=== PATIENT | female | born 1960 | race Caucasian/White ===

== ENCOUNTER → 2023-08-13 | Day surgery (SDC) | payer MEDICARE, MEDICAID ==
[~2023-08-13] VITALS: Ht 149.9 cm; Wt 61.0 kg
[~2023-08-13] MED LIST: ATOR20TA65 PO; BACITRACIN 14GM TUBE TOP ONE; BUPIVACAINE HCL/PF 0.5% (5MG/ML) 10ML ONE; CLINDAMYCIN 900MG PREMIX 50 ML IV ONE; FENTANYL CITRATE/PF 50MCG/ML 2ML VIAL ONE; GABA-529 PO; HEPARIN SODIUM 1,000 UNIT/1ML VIAL IV ONE; HYDROMORPHONE HCL/PF 2MG/ML CPJ IV PRN; INSNOV SUBCUT; INSU100I24 SQ; LABETALOL 5MG/ML SYR 20 MG/4 ML SYRINGE IV PRN; LIDOCAINE HCL 1% 10 MG/ML 10ML VIAL ONE; MEPERIDINE HCL/PF 25MG/ML CPJ IV PRN; MIDAZOLAM HCL 2 MG/2 ML VIAL ONE; MIDO5TAB4 PO; ONDANSETRON HCL 4MG/2ML INJ IV PRN; POLYMYXIN B SULFATE 500000 UNITS/VIAL ONE; PROPOFOL 200MG/20ML VIAL IV ONE; ROPIVACAINE HCL 1% 20 ML VIAL EPI ONE; SEVE800T8 PO; SODIUM CHLORIDE 0.9% 500 ML IV NR; THROMBIN (BOVINE) 5000 UNITS/VIAL TOP ONE
[2023-08-13 06:12] LABS: BASOPHILS % 0.8 % (0.0-2.0); EOSINOPHILS % 3.2 % (0.0-5.0); HEMATOCRIT. 38.4 % (36.0-48.0); HEMOGLOBIN. 12.3 g/dL (12.0-16.0); LYMPHOCYTES % 26.5 % (20.0-50.0); MEAN CORPUSCULAR HEMOGLOBIN 29.4 pg (28.0-32.0); MEAN CORPUSCULAR HGB CONC 32.2 g/dL (31.0-37.0); MEAN CORPUSCULAR VOLUME 91.5 fL (81.0-99.0); MEAN PLATELET VOLUME 7.7 fl (7.4-10.4); MONOCYTES % 7.7 % (2.0-8.0); NEUTROPHILS % 61.8 % (40.0-76.0); PLATELET 208 x1000/uL (130-400); RED BLOOD CELL COUNT 4.19 mill/uL (4.2-5.4); RED CELL DISTRIBUTION WIDTH 17.3 % (11.6-14.6); WHITE BLOOD COUNT 7.7 x1000/uL (4.5-11.0)
[2023-08-13 06:24] LABS: PARTIAL THROMBOPLASTIN TIME 27.6 sec (23.4-31.0); PROTHROMBIN TIME 10.3 sec (9.6-11.0)
[2023-08-13 06:29] LABS: CALCIUM 8.4 mg/dL (8.7-10.4); CREATININE 3.8 mg/dL (0.6-1.0); POTASSIUM 4.9 mEq/L (3.5-5.1)
== END | disposition home or self-care (01) ==
LOC: OR 05:32
PROVIDERS: ATTEND Surgery Vascular Surgery
DX: I12.0 Hypertensive chronic kidney disease with stage 5 chronic kidney disease or end stage renal disease (principal); N18.6 End stage renal disease; E11.22 Type 2 diabetes mellitus with diabetic chronic kidney disease; E78.00 Pure hypercholesterolemia, unspecified; Z99.2 Dependence on renal dialysis; Z90.710 Acquired absence of both cervix and uterus; Z98.890 Other specified postprocedural states; Z79.4 Long term (current) use of insulin; Z79.899 Other long term (current) drug therapy; Z88.0 Allergy status to penicillin
CPT/HCPCS: 80048; 85025; 85610; 85730; 36415; 93005; 36830; C1768; J3010; J3490 ×5; J1644; J2250; J2704; J2795; Z7610 ×29; A4217 ×2; J7030